=== PATIENT | male | born 1990 | race Caucasian/White ===

== ENCOUNTER 2016-06-16 22:01 | Emergency (ER) | payer MEDICAID ==
[2016-06-16] MEDS ORDERED: Albuterol/Ipratropium 3.0-0.5 MG/3 ML Neb Soln NEB ONE (23:22)
[2016-06-16 23:48] VITALS: BP 115/75
--- NOTE | 2016-06-16 23:48 | EDM.PDOC ---
[id number] 4d FEVER Time Seen by Provider: 06/16/16 23:17 Source of Information: Reports: Patient History Limitations: Reports: No limitations - History of Present Illness INITIAL COMMENTS - FREE TEXT/NARRATIVE: 26-year-old male who was a cough and fever for the last several days. His significant other just got over bronchitis that seemed to respond to Zithromax. He is not getting worse but not getting better, decided tonight he should to check for treatment. No nausea or vomiting. He feels intermittent shortness of breath. Intermittent sore throat. He did not obtain a flu vaccination. Duration: Day(s): (3 days) Associated Symptoms: Reports: cough, fever/chills, shortness of breath. Denies : headaches Throat Pain Score (Numeric/FACES): 7 - Related Data Allergies Allergy/AdvReac Type Severity Reaction Status Date / Time No Known Allergies Allergy Verified 11/04/15 20:20 Home Meds: Home Meds NK [No Known Home Meds] 11/04/15 [History] Past Medical History Gastrointestinal History: Reports: GERD Endocrine/Metabolic History: Reports: Obesity/BMI 30+ Dermatologic History: Reports: Other (see below) Other Dermatologic History: recurrent rash on back during summertimes - Infectious Disease History Infectious Disease History: Reports: Chicken pox - Past Surgical History HEENT Surgical History: Reports: Myringotomy w tube(s) Social & Family History - Tobacco Use Smoking Status *Q: Current Some Day Smoker Years of Tobacco use: 8 Packs/Tins Daily: 0.5 Second Hand Smoke Exposure: No - Caffeine Use Caffeine Use: Reports: Coffee, Energy drinks, Soda, Tea - Recreational Drug Use Recreational Drug Use: No ED ROS GENERAL - Review of Systems Review Of Systems: See Below Constitutional: Reports: fever, chills HEENT: Reports: Throat pain (Especially from coughing) Respiratory: Reports: Shortness of Breath, Cough. Denies: Sputum GI/Abdominal: Denies: Abdominal pain, Nausea, Vomiting : Reports: no symptoms Musculoskeletal: Reports: no symptoms Skin: Reports: no symptoms Neurological: Denies: Headache ED EXAM, GENERAL - Physical Exam Exam: See Below Exam Limited By: No limitations General Appearance: alert, no apparent distress Eye Exam: bilateral eye: normal inspection Ears: normal TMs Throat/Mouth: Normal inspection Respiratory/Chest: no respiratory distress, wheezing (Few expiratory wheezes diffusely) Cardiovascular: regular rate, rhythm Neurological: alert, oriented Psychiatric: normal affect, normal mood Skin Exam: Warm, Dry Course - Vital Signs Last Recorded V/S: Last Vital Signs Temp 102.1 F H 06/16/16 23:47 Pulse 112 H 06/16/16 23:47 Resp 19 06/16/16 23:47 BP 115/75 06/16/16 23:47 Pulse Ox 98 06/16/16 23:47 - Orders/Labs/Meds Orders: Active Orders 24 hr Category Date Time Status RT Aerosol Therapy [RC] ASDIRECTED Care 06/16/16 23:22 Active CULTURE STREP A CONFIRMATION [RM] Routine Lab 06/16/16 23:22 Results STREP SCRN A RAPID W CULT CONF [RM] Routine Lab 06/16/16 23:22 Results Meds: Medications Discontinued Medications Generic Name Dose Route Start Last Admin Trade Name Freq PRN Reason Stop Dose Admin Albuterol/Ipratropium 3 ml 06/16/16 23:22 06/16/16 23:27 Duoneb 3.0-0.5 Mg/3 Ml NEB 06/16/16 23:23 3 ml ONETIME ONE Administration - Re-Assessments/Exams Free Text/Narrative Re-Assessment/Exam: 06/17/16 01:11 A rapid strep was obtained as well as influenza antigens. A DuoNeb was given pending results. He felt some subjective improvement after the DuoNeb. His rapid strep and influenza tests were negative. Patient will be treated with a course of Zithromax and also given an albuterol metered-dose inhaler to use as needed. Recheck in 2-3 days if not improving. Departure - Departure Time of Disposition: 00:08 Disposition: Home, Self-Care 01 Condition: good Clinical Impression: Bronchitis Instructions: Acute Bronchitis, [id number] Referrals: José Miguel Ellis MD [Primary Care Provider] - Forms: ED Department Discharge Care Plan Goals: Take Zithromax as prescribed and use inhaler for shortness of breath as needed. Recheck in 2-3 days if not improving, or consider returning anytime if worsening or concerns. - My Orders Last 24 Hours: My Active Orders 06/16/16 23:22 RT Aerosol Therapy [RC] ASDIRECTED CULTURE STREP A CONFIRMATION [RM] Routine STREP SCRN A RAPID W CULT CONF [RM] Routine - Assessment/Plan Last 24 Hours: My Active Orders 06/16/16 23:22 RT Aerosol Therapy [RC] ASDIRECTED CULTURE STREP A CONFIRMATION [RM] Routine STREP SCRN A RAPID W CULT CONF [RM] Routine
== END 2016-06-16 23:58 | disposition home or self-care (01) ==
LOC: JP.ED 22:01
DX: J40 Bronchitis, not specified as acute or chronic (principal); F17.210 Nicotine dependence, cigarettes, uncomplicated; E66.9 Obesity, unspecified; Z68.42 Body mass index [BMI] 45.0-49.9, adult; Z96.22 Myringotomy tube(s) status
CPT/HCPCS: 87081; 87430; 87804; 99284; J7620